=== PATIENT | female | born 1955 | race African-American/Black ===

== ENCOUNTER 2018-04-05 11:48 | Inpatient (IN) | payer OTHER ==
[~2018-04-05] VITALS: Ht 162 cm; Wt 103.9 kg
--- NOTE | ~2018-04-05 | CATHLAB ---
[facility] [address] [address] INVASIVE PROCEDURE REPORT Name: DOMINIC MACEDO Room #: 218-P [facility] IN [facility].#: [id number] Admission: 04/05/18 Attend Phys: Edmar Lee MD Discharge: 04/07/18 Date of : 51 Date of Service: 04/13/18 1152 Report #: [id number] THIS REPORT FOR: //name// APPROVED REPORT Study performed: 04/06/2018 13:00:36 Patient Details Patient Status: In-Patient Room #: The patient is a 62 year-old female Event Personnel Aldair Barr Nipple Threader, Destiny Bedoya RN RN, Blaine Toney RN RN, Leandra Hoff [place], Christine RTR Scrub, Supriya Krueger Monitor Procedures Performed Art Access - R femoral artery* Left Heart Cath w/or w/o Coronaries [id number] [facility] BECKY Place w/wo Plasty Single CIRC 401305 Hemostasis w/ Mynx 44832 Initial Mod Sed Same Phys/QHP Gr5y [id number] provisional conscious sedation Indication Positive stress test, Chest pain Procedure Narrative The Right Groin^ was infiltrated with 1% Lidocaine subcutaneous anesthesia. A PINNACLE 6FR Sheath #[id number] sheath was inserted into the RFA^. Coronary angiography was performed using coronary diagnostic catheters. The right coronary system was accessed and visualized with a JR4 catheter. The left coronary system was accessed and visualized with a JL4 catheter. The patient tolerated the procedure well and there were no complications associated with the procedure. There was no hematoma. Intraoperative Conscious Sedation Sedation start time: 1330 Case end Time: 1400 Versed 3 mg Fluoro Time: 14.10 minutes Dose: DAP 23025.00 cGycm2 2077 mGy Contrast Type and Amount: 160/OMNI Coronary Angiography [facility] [address] INVASIVE PROCEDURE REPORT Name: DOMINIC MACEDO Room #: 218-P [facility] IN M.R.#: [id number] Admission: 04/05/18 Attend Phys: Edmar Lee MD Discharge: 04/07/18 Date of : 51 Date of Service: 04/13/18 1152 Report #: [id number] The patient's coronary anatomy is right dominant. Diagnostic Cath Left Main Normal origin and caliber bifurcates left anterior descending left circumflex free of high-grade disease although irregularities are noted. LAD Moderate caliber type II vessel which courses in the anterior interventricular sulcus giving rise to diagonal and septal branches. It tapers rapidly with diffuse moderate irregularities in the distal third prior to terminating at the apex is a small bifurcating vessel Diagonal 1 Small-caliber vessel with luminal irregularities noted Circumflex Normal Liver vessel low moderate to large size proceeds in the AV groove gives rise to a large marginal branch which has an isolated focal lesion with moderate lesions beyond. The cervix proper continues posteriorly is small vessel free of high-grade disease OM1 Large-caliber vessel which courses along the lateral aspect of the heart has a 95 or greater percent lesion in its proximal third. It then continues on with 50% irregularities in the near portion to that lesion and then continues with luminal irregularities beyond Right Coronary Moderate caliber vessel normal origin per cc in the AV groove with luminal irregularities under 50%. It then gives rise to posterior descending artery at the crux of the heart and treatments is small caliber vessel beyond. No high-grade lesions are noted R PDA Small caliber vessel with luminal irregularities but without significant high-grade lesions Left Ventriculography Left Ventriculography was not performed. Hemodynamics The aortic pressure is 187/71 mmHg with a mean of 120 mmHg. The left ventricular pressure is 189/12 mmHg with a mean of mmHg. The left ventricular end diastolic pressure is 31 mmHg. PCI Technique Following termination of the need for revascularization percutaneously the system was sized up to 6 Belarusian. A standard Medtronic JL4 guide was then in place so 14 wire was advanced distally. Predilatation was not performed and a stent as noted in the chart was advanced and positioned across the lesion. The result was excellent although proximal to the lesion was not satisfactory and a high pressure balloon was then advanced and dietitian occurred per [facility] [address] [place] [address] INVASIVE PROCEDURE REPORT Name: DOMINIC MACEDO Room #: 218-P DIS IN M.R.#: [id number] Admission: 04/05/18 Attend Phys: Edmar Lee MD Discharge: 04/07/18 Date of : 51 Date of Service: 04/13/18 1152 Report #: [id number] documentation. There was no loss of side branch distal embolization. Final result was excellent with no residual stenosis noted. No intimal disruption was present PCI Technique Lesion Percutaneous coronary intervention was performed on the mid circumflex artery segment. A LAUNCHER 6FR JL4 #[id number] Guide Catheter was used to engage the ostium. A Luge Wire (J) .014 X 182CM #[id number] Interventional Guidewire was used to cross the lesion. STENT DEPLOYMENT A drug-eluting stent RESOLUTE NIRMAL OTW 2.5 X 12 #[id number] was inserted and inflated up to 12.00atm for 21seconds. Additional Inflation: 8.00atm for 14seconds. Conclusion 1. Coronary disease severe single-vessel 2. Normal hemodynamics 3. Successful percutaneous revascularization and stenting of the left circumflex with a BECKY Medtronic stent Recommendations Cardiac Risk Reduction Program Medications Administered Prasugrel <ELECTRONICALLY SIGNED> By: Aldair Barr MD 04/13/18 1152 1152 115 Aldair Barr MD /INF
--- NOTE | ~2018-04-05 | 2DMMODE ---
[facility] [address] [place] [address] 2 D/M-MODE ECHOCARDIOGRAM Name: DOMINIC MACEDO Room #: 218-P ADM IN ..#: [id number] Admission: 04/05/18 Attend Phys: Edmar Lee MD Discharge: Date of : 51 Date of Service: 04/06/18 1212 Report #: [id number] THIS REPORT FOR: //name// APPROVED REPORT Study performed: 04/06/2018 09:42:54 EXAM: Comprehensive 2D, Doppler, and color-flow Echocardiogram Patient Location: Bedside Room #: 218 Status: routine BSA: 2.02 HR: 60 bpm BP: 139/64 mmHg Other Information Study Quality: Adequate/Technically Difficult Technically limited study due to body habitus. Indications Diabetes Elevated Troponin Chest Pain Hypertension/HDD 2D Dimensions RVDd: 32.97 mm IVSd: 11.32 (7-11mm) LVOT Diam: 20.52 (18-24mm) LVDd: 43.40 mm PWd: 11.57 (7-11mm) Ascending Ao: 29.41 (22-36mm) LVDs: 30.19 (25-40mm) Aortic Root: 30.36 mm IVC: 18.00 mm Volumes Left Atrial Volume (Systole) Single Plane 4CH: 49.26 mL Single Plane 2CH: 48.11 mL LA ESV Index: 25.00 mL/m2 Aortic Valve AoV Peak Karthikeyan.: 1.32 m/s AO Peak Gr.: 6.92 mmHg LVOT Max P.71 mmHg LVOT Max V: 0.96 m/s ROSIE Vmax: 2.42 cm2 [facility] [address] [address] 2 D/M-MODE ECHOCARDIOGRAM Name: DOMINIC MACEDO Room #: 218-P [facility] IN [facility]#: [id number] Admission: 04/05/18 Attend Phys: Edmar Lee MD Discharge: Date of : 51 Date of Service: 04/06/18 1212 Report #: [id number] Mitral Valve E/A Ratio: 1.4 MV Decel. Time: 173.18 ms MV E Max Karthikeyan.: 1.04 m/s MV A Karthikeyan.: 0.72 m/s MV PHT: 50.22 ms IVRT: 69.20 ms Pulmonary Valve PV Peak Karthikeyan.: 0.72 m/s PV Peak Gr.: 2.06 mmHg Tricuspid Valve TR Peak Karthikeyan.: 2.96 m/s RAP Estimate: 5.00 mmHg TR Peak Gr.: 35.01 mmHg PA Pressure: 40.00 mmHg Left Ventricle The left ventricle is normal size. There is normal LV segmental wall motion. Mild concentric left ventricular hypertrophy. The left ventricular systolic function is normal. The left ventricular ejection fraction is within the normal range. LVEF is 60%. The left ventricular diastolic function is normal. Right Ventricle The right ventricle is normal size. Right ventricular systolic function is not well visualizedl. Atria The left atrium size is normal. Right atrium is at the upper limits of normal. Aortic Valve The aortic valve is trileaflet, structurally normal. No aortic regurgitation is present. There is no aortic valvular stenosis. Mitral Valve The mitral valve is normal in structure. Mild mitral regurgitation. No evidence of mitral valve stenosis. Tricuspid Valve The tricuspid valve is normal in structure. Mild tricuspid regurgitation. PAP is estimated at 40 mmHg. Pulmonic Valve The pulmonary valve is normal in structure. There is no pulmonic [facility] [address] [place] [address] 2 D/M-MODE ECHOCARDIOGRAM Name: DOMINIC MACEDO Room #: 218-P [facility] IN .R.#: [id number] Admission: 04/05/18 Attend Phys: Edmar Lee MD Discharge: Date of : 51 Date of Service: 04/06/18 1212 Report #: [id number] valvular regurgitation. Great Vessels The aortic root is normal in size. IVC is normal in size and collapses >50% with inspiration. Pericardium There is no pericardial effusion. <Conclusion> The left ventricular systolic function is normal. There is normal LV segmental wall motion. LVEF 60%. The aortic valve is trileaflet, structurally normal. No aortic regurgitation or stenosis The mitral valve is normal in structure. Mild mitral regurgitation. Mild tricuspid regurgitation. Pulmonary artery pressure estimated at 40 mmHg. There is no pericardial effusion. <ELECTRONICALLY SIGNED> By: Meliton Harrell MD, FACC 04/06/181211 11 11 Meliton Harrell MD, FACC /INF
--- NOTE | ~2018-04-05 | HC ---
[facility] [place] [address] CONSULTATION Name: DOMINIC MACEDO Room #: 218-P [facility] IN M.R.#: [id number] Admission: 04/05/18 Attend Phys: Edmar Lee MD Discharge: Date of : 51 Report #: [id number] THIS REPORT FOR: //name// CC: Placido Lee DATE OF SERVICE: 04/05/2018 REASON FOR CONSULTATION: Chest discomfort. HISTORY OF PRESENT ILLNESS: This is a very pleasant 62-year-old female patient without prior history of coronary artery disease who presented to the Emergency Room with complaints of substernal discomfort. The patient states the discomfort awoke her from sleep several hours prior to presentation to the Emergency Room with some associated shortness of breath. The patient states that over the last week or 10 days, she has been having some chest discomfort with activity and exertion, which were mild and seemed to resolve with rest. The discomfort is radiating to the shoulder and to the back initially and it calmed down to the point where it is milder, but it still was persistent by the time she arrived at the Emergency Room. Initial cardiac enzymes were elevated and consultation was obtained. She did think that she may have had a pulmonary embolus and she has had issues with that in the past, but spiral CT performed was negative even though the D-dimer was slightly elevated. No orthopnea, PND, syncope or near syncope. No symptomatology at all prior to this last week to 3 week interval. PAST MEDICAL HISTORY: Significant for: 1. Hypertension. 2. Diabetes mellitus. 3. Gastroesophageal reflux disease. 4. Obesity. MEDICATIONS: Lisinopril, metformin, omeprazole, cholecalciferol and vitamin D. ALLERGIES: ASPIRIN WHICH CAUSES HER NOT TO FEEL WELL. SOCIAL HISTORY: The patient does not drink, does not exercise or follow a particular exercise regimen, but she does smoke. REVIEW OF SYSTEMS: Except for the symptoms previously mentioned and those commensurate with comorbid state, the 10-point review of system is negative. PHYSICAL EXAMINATION: GENERAL: Well-developed, well-nourished female resting comfortably in no acute distress. HEENT: Normocephalic, atraumatic. Pupils are equal, round, reactive to light [facility] [address] [place] [address] CONSULTATION Name: DOMINIC MACEDO Room #: 218-P [facility] IN [facility].#: [id number] Admission: 04/05/18 Attend Phys: Edmar Lee MD Discharge: Date of : 51 Report #: [id number] and accommodation. Extraocular muscles are intact. Sclerae and conjunctivae are anicteric. NECK: JVD is normal. Carotid upstrokes are bilaterally symmetrical. No bruits are heard. No thyromegaly. No lymphadenopathy. LUNGS: Clear to auscultation. No wheezes, rhonchi or crackles. No CVA tenderness. CARDIAC: Demonstrates a regular rhythm. Normal first and second heart sounds. No ventricular or atrial gallops, no rubs noted. No murmurs. No lifts or heaves, PMI normal. ABDOMEN: Soft, nontender, nondistended. Normal bowel sounds. EXTREMITIES: Without cyanosis, clubbing or edema. Distal pulses are intact. DTR symmetrical. NEUROLOGIC: Cranial nerves 2-12 are grossly normal and symmetrical. PSYCHIATRIC: Alert, oriented with normal affect. SKIN: Warm and dry. ELECTROCARDIOGRAM: Normal sinus rhythm, nonspecific ST-T wave changes. RADIOLOGIC DATA: CT scan of the chest yields no significant evidence of luminary thrombus. IMPRESSION: 1. Chest pains with risk factors and elevated troponin. In view of this, this is clearly a non-ST segment elevation myocardial infarction and I discussed options with the patient. She is currently anticoagulated, which is excellent and we will continue the heparin until we proceed with the angiography tomorrow. The risks, complications, alternatives of catheterization, percutaneous revascularization and conscious sedation have been discussed with the patient; she voices understanding and wishes to proceed. 2. Diabetes mellitus. We will monitor sugars to make sure that there are at target and follow along with primary care. 3. Hypertension. I am going to check blood pressures and make sure that we have her regimen optimized. She is already on an JOSH inhibitor, which is excellent. We did discuss nonpharmacologic treatment of hypertension for which the patient voices understanding. <ELECTRONICALLY SIGNED> By: Aldair Barr MD 04/07/18 1257 [id number] [id number] Aldair Barr MD /nt
--- NOTE | ~2018-04-05 | EKG ---
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
--- NOTE | ~2018-04-05 | EKG ---
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
[2018-04-05 12:01] VITALS: BP 176/93
[2018-04-05] MEDS ORDERED: LISINOPRIL20 MG PO (12:03)
[2018-04-05] MEDS ORDERED: VITAMIN D1000 UNI1 PO (12:04)
[2018-04-05] MEDS ORDERED: PRILOSEC 20 MG20 MG PO (12:04)
[2018-04-05] MEDS ORDERED: GLUCOPHAGE XR500 M1 PO (12:04)
[2018-04-05 12:40] LABS: ABSOLUTE NEUTROPHILS 5.6 thou/uL (1.4-8.2); BASOPHILS 0.7 % (0.0-2.0); HEMATOCRIT 42.3 % (37.0-47.0); HEMOGLOBIN 14.4 gm/dL (12.0-15.0); LYMPHOCYTES 42.9 % (24.0-44.0); MCH 29.3 pg (26.0-34.0); MONOCYTES 6.7 % (1.0-8.0); PLATELET COUNT 167 thou/uL (150-400); POLYS 47.7 % (36.0-66.0); RBC 4.91 mil/uL (4.20-5.00); RDW 15.7 % (10.5-14.5); WBC 11.8 thou/uL (4.0-11.0)
[2018-04-05 12:47] LABS: CALCIUM 10.5 mg/dL (8.5-10.1); CREATININE 0.9 mg/dL (0.6-1.0); POTASSIUM 3.8 mmol/L (3.5-5.1)
[2018-04-05 13:02] LABS: TROPONIN-I 1.52 ng/mL (<0.06)
[2018-04-05 14:39] VITALS: BP 189/85
[2018-04-05 14:58] VITALS: BP 189/85
[2018-04-05 15:31] VITALS: BP 164/78
[2018-04-05 20:44] VITALS: BP 149/64
[2018-04-05 23:43] VITALS: BP 176/79
[2018-04-06 04:25] LABS: ANION GAP 5 mmol/L (7-16); BUN 11 mg/dL (7-18); CALCIUM 9.7 mg/dL (8.5-10.1); CHLORIDE 104 mmol/L (98-107); CHOLESTEROL 203 mg/dL (<200); CO2 27 mmol/L (21-32); CREATININE 0.8 mg/dL (0.6-1.0); GLUCOSE 147 mg/dL (74-106); HDL CHOLESTEROL 43 mg/dL (>40); LDL CHOLESTEROL 139 mg/dL (<100); POTASSIUM 3.9 mmol/L (3.5-5.1); SODIUM 136 mmol/L (136-145); TC:HDL 4.7 Ratio (Not establshd); TRIGLYCERIDE 109 mg/dL (<150); VLDL 22 mg/dL (<40)
[2018-04-06 04:36] LABS: HEMATOCRIT 38.9 % (37.0-47.0); HEMOGLOBIN 13.3 gm/dL (12.0-15.0); MCH 29.4 pg (26.0-34.0); MCHC 34.1 g/dL (28.0-37.0); MCV 86.1 fL (80.0-100.0); RBC 4.52 mil/uL (4.20-5.00); RDW 15.9 % (10.5-14.5); WBC 10.9 thou/uL (4.0-11.0)
[2018-04-06 04:38] LABS: SERUM ASSESSMENT Clear
[2018-04-06 06:12] VITALS: BP 156/65
[2018-04-06 08:48] VITALS: BP 1398/64
[2018-04-06 19:51] VITALS: BP 152/53
[2018-04-07 00:10] VITALS: BP 142/57
[2018-04-07 05:13] VITALS: BP 157/77
[2018-04-07 05:29] LABS: HEMATOCRIT 39.7 % (37.0-47.0); HEMOGLOBIN 12.9 gm/dL (12.0-15.0); MCH 28.5 pg (26.0-34.0); MCHC 32.4 g/dL (28.0-37.0); MCV 87.7 fL (80.0-100.0); RBC 4.52 mil/uL (4.20-5.00); RDW 16.1 % (10.5-14.5); WBC 9.4 thou/uL (4.0-11.0)
[2018-04-07 05:33] LABS: ANION GAP 6 mmol/L (7-16); BUN 10 mg/dL (7-18); CALCIUM 9.5 mg/dL (8.5-10.1); CHLORIDE 103 mmol/L (98-107); CHOLESTEROL 211 mg/dL (<200); CO2 27 mmol/L (21-32); CREATININE 0.8 mg/dL (0.6-1.0); GLUCOSE 145 mg/dL (74-106); HDL CHOLESTEROL 41 mg/dL (>40); LDL CHOLESTEROL 147 mg/dL (<100); MAGNESIUM 1.6 mg/dL (1.8-2.4); POTASSIUM 4.2 mmol/L (3.5-5.1); SODIUM 136 mmol/L (136-145); TC:HDL 5.1 Ratio (Not establshd); TRIGLYCERIDE 116 mg/dL (<150); VLDL 23 mg/dL (<40)
[2018-04-07 05:34] LABS: SERUM ASSESSMENT Clear
[2018-04-07 07:43] VITALS: BP 167/61
[2018-04-07] MEDS ORDERED: ASPIRIN81 M2 PO (09:33)
[2018-04-07] MEDS ORDERED: ACETAMINOPHEN325 M1 PO (09:33)
[2018-04-07] MEDS ORDERED: NITROGLYCERIN0.4 MG SUBLING (09:33)
[2018-04-07] MEDS ORDERED: TOPROL XL100 MG PO (09:49)
[2018-04-07] MEDS ORDERED: ASPIRIN325 PO (09:50)
[2018-04-07] MEDS ORDERED: EFFIENT10 MG PO (09:50)
[2018-04-07] MEDS ORDERED: CRESTOR20 MG PO (09:51)
[2018-04-07 11:40] VITALS: BP 155/56
[2018-04-07 12:35] VITALS: BP 155/56
[2018-04-07 13:04] VITALS: BP 155/56
== END 2018-04-07 14:10 | disposition home or self-care (01) | DRG 246 ==
LOC: ER 11:48 → EROBS 14:28 → 2N 14:28 → ENTRNSPT 04-07 14:01 → EDTRNSPTSTS 04-07 14:03 → 2N 04-07 14:10
PROVIDERS: Hospitalist; Physician Assistant
PROC: 027034Z Dilation of Coronary Artery, One Artery with Drug-eluting Intraluminal Device, Percutaneous Approach (ICD-10-PCS; principal; 2018-04-06)
PROC: B2111ZZ Fluoroscopy of Multiple Coronary Arteries using Low Osmolar Contrast (ICD-10-PCS; principal; 2018-04-06)
PROC: 4A023N7 Measurement of Cardiac Sampling and Pressure, Left Heart, Percutaneous Approach (ICD-10-PCS; principal; 2018-04-06)
DX: I21.4 Non-ST elevation (NSTEMI) myocardial infarction (principal); I50.33 Acute on chronic diastolic (congestive) heart failure; F17.210 Nicotine dependence, cigarettes, uncomplicated; I10 Essential (primary) hypertension; E11.9 Type 2 diabetes mellitus without complications; K21.9 Gastro-esophageal reflux disease without esophagitis; E66.9 Obesity, unspecified; E78.00 Pure hypercholesterolemia, unspecified; I25.10 Atherosclerotic heart disease of native coronary artery without angina pectoris; I27.20 Pulmonary hypertension, unspecified; E83.42 Hypomagnesemia; E78.5 Hyperlipidemia, unspecified; Z79.82 Long term (current) use of aspirin; Z79.899 Other long term (current) drug therapy; Z88.6 Allergy status to analgesic agent; Z68.39 Body mass index [BMI] 39.0-39.9, adult; Z82.49 Family history of ischemic heart disease and other diseases of the circulatory system; Z28.21 Immunization not carried out because of patient refusal
CPT/HCPCS: 10081

== ENCOUNTER → 2019-09-17 | Outpatient (CLI) | payer OTHER ==
[~2019-09-17] MED LIST: ACETAMINOPHEN325 M1 PO; ASPIRIN325 PO; ASPIRIN81 M2 PO; CRESTOR20 MG PO; EFFIENT10 MG PO; GLUCOPHAGE XR500 M1 PO; LISINOPRIL20 MG PO; NITROGLYCERIN0.4 MG SUBLING; PRILOSEC 20 MG20 MG PO; TOPROL XL100 MG PO; VITAMIN D1000 UNI1 PO
== END ==
LOC: SJCVC 10:27
DX: R94.31 Abnormal electrocardiogram [ECG] [EKG] (principal); I11.9 Hypertensive heart disease without heart failure; I25.10 Atherosclerotic heart disease of native coronary artery without angina pectoris; E78.5 Hyperlipidemia, unspecified; E11.9 Type 2 diabetes mellitus without complications; Z72.0 Tobacco use

== ENCOUNTER → 2020-03-24 | Outpatient (CLI) | payer OTHER | LOC: SJCVC 10:17 | PROVIDERS: ATTEND Internal Medicine | DX: R94.31 Abnormal electrocardiogram [ECG] [EKG] (principal); I25.10 Atherosclerotic heart disease of native coronary artery without angina pectoris; I11.9 Hypertensive heart disease without heart failure; E78.5 Hyperlipidemia, unspecified; E11.9 Type 2 diabetes mellitus without complications; I25.2 Old myocardial infarction; F17.210 Nicotine dependence, cigarettes, uncomplicated; Z79.899 Other long term (current) drug therapy ==

== ENCOUNTER → 2021-04-06 | Outpatient (CLI) | payer OTHER | LOC: SJCVC 10:37 | PROVIDERS: ATTEND Internal Medicine | DX: R94.31 Abnormal electrocardiogram [ECG] [EKG] (principal); I25.10 Atherosclerotic heart disease of native coronary artery without angina pectoris; I11.9 Hypertensive heart disease without heart failure; E78.5 Hyperlipidemia, unspecified; F17.210 Nicotine dependence, cigarettes, uncomplicated; E11.9 Type 2 diabetes mellitus without complications; E83.42 Hypomagnesemia; Z95.5 Presence of coronary angioplasty implant and graft; Z79.84 Long term (current) use of oral hypoglycemic drugs; Z79.899 Other long term (current) drug therapy ==